=== PATIENT | female | born 1995 | race Caucasian/White ===

== ENCOUNTER 2019-12-25 11:27 | Outpatient (CLI) | payer OTHER ==
[2019-12-25 12:14] LABS: AMORPHOUS SEDIMENT,URINE TRACE /HPF; APPEARANCE,URINE CLOUDY; BILIRUBIN,URINE NEGATIVE (NEGATIVE); COLOR,URINE YELLOW; GLUCOSE, URINE NEGATIVE (NEGATIVE); KETONES,URINE NEGATIVE (NEGATIVE); LEUKOCYTE ESTERASE,URINE SMALL (NEGATIVE); NITRITE,URINE NEGATIVE (NEGATIVE); PROTEIN,URINE NEGATIVE (NEGATIVE); URINE SPECIFIC GRAVITY 1.013; UROBILINOGEN,URINE NEGATIVE mg/dL (<2.0)
[2019-12-25 12:26] LABS: URINE AMPHETAMINES SCREEN NEGATIVE; URINE BARBITURATES SCREEN NEGATIVE; URINE BENZODIAZEPINES SCREEN NEGATIVE; URINE COCAINE SCREEN NEGATIVE; URINE MARIJUANA (THC) SCREEN NEGATIVE; URINE METHADONE SCREEN NEGATIVE; URINE PHENCYCLIDINE SCREEN NEGATIVE
--- NOTE | 2019-12-25 13:29 | RADIOLOGY REPORT (SQ) ---
EXAM DESCRIPTION: U/S OB LIMITED IMAGES COMPLETED DATE/TIME: 12/25/2019 1:12 pm REASON FOR STUDY: IUP @ 28.3 weeks, PLACENTA PREVIA, VAG BLEEDING COMPARISON: None. TECHNIQUE: Limited Transabdominal grayscale ultrasound for evaluation of specific requested obstetr ical parameters. LIMITATIONS: None. FINDINGS: CERVICAL LENGTH: 2.7 cm Closed. Transabdominal imaging of the lower uterine segment and cervix demonstrates questionable marginal placenta previa posteriorly. PRETTY: 11.6 cm total, largest pocket 5.2 x 3.5 cm FHR: 137 beats per minute. PRESENTATION: Cephalic. PLACENTA: Posterior, no retroplacental fluid collection is identified ANATOMY: Not assessed OTHER: Findings discussed with Dr. Oneal IMPRESSION: Cervix closed, 2.7 cm in length. Low lying posterior placenta without retroplacental hemorrhage. Trimester of : Third trimester - 28 weeks to delivery. TECHNICAL DOCUMENTATION: JOB ID: [id number] 2010 [employer]- All Rights Reserved Reading location - IP/workstation name: [email or web address]
== END 2019-12-25 13:49 | disposition home or self-care (01) ==
LOC: LC 11:27
PROVIDERS: ATTEND Obstetrics & Gynecology
DX: O46.93 Antepartum hemorrhage, unspecified, third trimester (principal); Z3A.28 28 weeks gestation of pregnancy
CPT/HCPCS: 36415; 76815; 80307; 81001; 86850; 86900; 86901

== ENCOUNTER 2020-01-17 05:28 | Outpatient (CLI) | payer OTHER ==
[2020-01-17 06:23] LABS: APPEARANCE,URINE CLOUDY; BILIRUBIN,URINE NEGATIVE (NEGATIVE); COLOR,URINE RED; GLUCOSE, URINE NEGATIVE (NEGATIVE); KETONES,URINE NEGATIVE (NEGATIVE); LEUKOCYTE ESTERASE,URINE SMALL (NEGATIVE); NITRITE,URINE NEGATIVE (NEGATIVE); PROTEIN,URINE 100 mg/dL (NEGATIVE); URINE SPECIFIC GRAVITY 1.005; UROBILINOGEN,URINE NEGATIVE mg/dL (<2.0)
[2020-01-17 06:27] LABS: ABSOLUTE BASOPHILS # (AUTO) 0.1 10^3/uL (0.0-0.2); ABSOLUTE EOSINOPHILS # (AUTO) 0.2 10^3/uL (0.0-0.6); ABSOLUTE LYMPHOCYTES (AUTO) 3.2 10^3/uL (0.5-4.7); ABSOLUTE MONOCYTES (AUTO) 0.9 10^3/uL (0.1-1.4); ABSOLUTE NEUT (AUTO) 10.5 10^3/uL (1.7-8.2); BASOPHILS % (AUTO) 0.4 % (0-2); HEMATOCRIT 37.8 % (36.0-47.0); HEMOGLOBIN 13.2 g/dL (12.0-15.5); LYMPHOCYTES % (AUTO) 21.4 % (13-45); MEAN CORPUSCULAR HEMOGLOBIN 31.4 pg (27.0-33.4); MEAN CORPUSCULAR HGB CONC 35.1 g/dL (32.0-36.0); MEAN CORPUSCULAR VOLUME 90 fl (80-97); MONOCYTES % (AUTO) 6.3 % (3-13); PLATELET COUNT 329 10^3/uL (150-450); RED BLOOD COUNT 4.21 10^6/uL (3.72-5.28); SEGMENTED NEUTROPHILS % (AUTO) 70.9 % (42-78); TOTAL CELLS COUNTED % (AUTO) 100 %; WHITE BLOOD COUNT 14.8 10^3/uL (4.0-10.5)
[2020-01-17 06:29] LABS: URINE AMPHETAMINES SCREEN NEGATIVE; URINE BARBITURATES SCREEN NEGATIVE; URINE BENZODIAZEPINES SCREEN NEGATIVE; URINE COCAINE SCREEN NEGATIVE; URINE MARIJUANA (THC) SCREEN NEGATIVE; URINE METHADONE SCREEN NEGATIVE; URINE PHENCYCLIDINE SCREEN NEGATIVE
[2020-01-17 06:37] LABS: INTERNATIONAL RATION (INR) 0.86; PROTHROMBIN TIME 11.9 SEC (11.4-15.4)
[2020-01-17 06:38] LABS: FIBRINOGEN 494 mg/dL (209-497)
[2020-01-17] MEDS ORDERED: RINGERS SOLUTION,LACTATED 1,000 ML IV PRN (07:10)
[2020-01-17] MEDS ORDERED: BETAMET ACET/BETAMET NA INJ 6 MG/1 ML ONE (07:22)
[2020-01-17] MEDS ORDERED: BETAMET ACET/BETAMET NA INJ 6 MG/1 ML IM SCH (07:30)
--- NOTE | 2020-01-17 09:19 | PDOC TRANSFER SUMMARY ---
General - Transfer Diagnosis (1) IUP (intrauterine ), incidental Is this a current diagnosis for this admission?: Yes (2) Vaginal bleeding affecting early Is this a current diagnosis for this admission?: Yes - Transfer Medications Home Medications: Vits96/Iron Fum/Folic [ Tablet] 1 each PO DAILY 12/25/19 - Allergies Allergies/Adverse Reactions: amoxicillin Allergy (Verified 01/17/20 05:36) Hives ciprofloxacin Allergy (Verified 01/17/20 05:36) Hives Hospital Course Hospital Course: Patient is a 24-year-old 2 para 1 at 31 weeks 5 days. Patient is a patient here at [facility]. He presented to this hospital complaining of vaginal bleeding. Patient gave a history of having a placenta previa and her last ultrasound stated that the placenta had moved 1 cm away from the eyes however she had a vaginal bleed 3 weeks ago and presented today with vaginal bleeding. Patient in no acute distress and because of her gestational age she is being transferred to [facility] to Dr. Pichardo for tertiary NICU care. Physical Exam Vital Signs: Intake & Output 01/16/20 01/17/20 01/18/20 06:59 06:59 06:59 Weight 73.2 kg General appearance: PRESENT: no acute distress Respiratory exam: PRESENT: chest wall tenderness Cardiovascular exam: PRESENT: RRR Results Laboratory Results: 01/17/20 06:12 01/17/20 01/17/20 01/17/20 05:35 06:12 06:12 WBC 14.8 H RBC 4.21 Hgb 13.2 Hct 37.8 MCV 90 MCH 31.4 MCHC 35.1 RDW 13.0 Plt Count 329 Seg Neutrophils % 70.9 Urine Color RED Urine Appearance CLOUDY Urine pH 7.0 Ur Specific [place] 1.005 Urine Protein 100 H Urine Glucose (UA) NEGATIVE Urine Ketones NEGATIVE Urine Blood LARGE H Urine Nitrite NEGATIVE Ur Leukocyte Esterase SMALL H Urine WBC (Auto) 1 Urine RBC (Auto) 1 Blood Type O POSITIVE Antibody Screen NEGATIVE Plan Time Spent: Greater than 30 Minutes - Patient being transferred to [facility] accepting physician is Dr. Pichardo. Patient is being transferred for potential NICU care.
== END 2020-01-17 10:22 | disposition short-term general hospital (02) ==
LOC: LC 05:28
PROVIDERS: ATTEND Obstetrics & Gynecology
DX: O46.93 Antepartum hemorrhage, unspecified, third trimester (principal); Z3A.31 31 weeks gestation of pregnancy
CPT/HCPCS: 86900; 86901; 36415; 86850; 85025; 85384; 85610; 85730; 81001; 80307; 59899; J0702; 96372